=== PATIENT | female | born 1990 | race Caucasian/White ===

== ENCOUNTER 2020-09-01 22:25 | Emergency (ER) | payer OTHER ==
[2020-09-01] MEDS ORDERED: Morphine 4 MG/ML VIAL ONE (23:04)
[2020-09-01 23:28] LABS: BHCG - Serum Negative (NEGATIVE); Pregs Control Background? CLEAR/WHITE (CLR/WHITE); Pregs Control Bar Appear? YES (CONTROL BAR)
[2020-09-01 23:32] LABS: #Eosinphils 0.4 10x3/uL (0.0-0.5); #Monocytes 0.7 10x3/uL (0.0-1.1); #Neutrophils 9.1 10x3/uL (1.5-8.4); %Basophils 0.3 % (0.0-2.0); %Eosinophils 3.1 % (0.0-6.0); %Lymphocytes 20.2 % (18.0-47.0); %Monocytes 5.2 % (0.0-10.0); %Neutrophils 70.9 % (40.0-75.0); Hemoglobin 10.3 g/dL (12.0-15.5); Mean Corpuscular HGB CONC 28.9 g/dL (32.0-36.0); Mean Corpuscular Volume 69.2 fl (81.6-98.3); Mean Platelet Volume 10.9 fl (7.4-10.4); Platelet Count 340 10x3/uL (150-450); RBC Distribution Width 20.1 % (11.5-14.5); Red Blood Cell (RBC) Count 5.16 10x6/uL (3.90-5.03); White Blood Cell (WBC) Count 12.8 10x3/uL (3.5-10.5)
[2020-09-01 23:33] LABS: ALT (SGPT) 12 U/L (8-55); AST (SGOT) 17 U/L (5-34); Albumin 4.6 g/dL (3.5-5.0); Alkaline Phosphatase 96 U/L (40-110); Anion Gap 14 mmol/L (10-20); BUN (Urea Nitrogen) 8 mg/dL (7.0-18.7); Bilirubin, Total 0.2 mg/dL (0.2-1.2); Calc. Creatinine Clearance 0 mL/min (70-130); Calcium 9.1 mg/dL (7.8-10.44); Carbon Dioxide 24 mmol/L (22-29); Chloride 105 mmol/L (98-107); Globulin 3.6 g/dL (2.4-3.5); Glucose 85 mg/dL (70-105); Potassium 3.8 mmol/L (3.5-5.1); Protein, Total 8.2 g/dL (6.0-8.3); Sodium 139 mmol/L (136-145)
[2020-09-02] MEDS ORDERED: Ketorolac Tromethamine 30 MG/ML VIAL ONE (00:41)
[2020-09-02 00:42] LABS: Anisocytosis MODERATE=16-30 cells (100X) (0-5/hpf); Microcytosis MODERATE=15-30 cells (100X) (0-5/hpf)
[2020-09-02 00:43] LABS: Hypochromia SLIGHT = 6-15 cells (100X) (0-5/hpf); Large Platelets MODERATE; Ovalocytes SLIGHT = 2-5 cells (100X) (0-1/hpf); Platelet Morphology Comment Appears Adequate; Reflex for Review?? YES
[2020-09-02 00:44] LABS: Macrocytosis SLIGHT = 6-15 cells (100X) (0-5/hpf)
== END 2020-09-02 01:23 | disposition home or self-care (01) ==
LOC: CSHERS 22:25
DX: S12.600A Unspecified displaced fracture of seventh cervical vertebra, initial encounter for closed fracture (principal); V86.59XA Driver of other special all-terrain or other off-road motor vehicle injured in nontraffic accident, initial encounter
CPT/HCPCS: 70450; 70486; 71260; 72125; 74177; 80053; 84703; 85025; 85060; 93005; 96374; 96375; J1885; J2270

== ENCOUNTER 2021-06-19 22:11 | Day surgery (SDC) | payer OTHER ==
[2021-06-19 22:46] VITALS: BMI 32.1
[2021-06-20] MEDS ORDERED: hydrALAZINE 20 MG/ML VIAL SLOW IVP PRN (00:45)
== END 2021-06-20 02:47 | disposition home or self-care (01) ==
LOC: CSHLD/OP 22:11
PROVIDERS: ATTEND Obstetrics & Gynecology
DX: O99.891 Other specified diseases and conditions complicating pregnancy (principal); R03.0 Elevated blood-pressure reading, without diagnosis of hypertension; M79.89 Other specified soft tissue disorders; O24.410 Gestational diabetes mellitus in pregnancy, diet controlled; Z3A.37 37 weeks gestation of pregnancy
CPT/HCPCS: 81003; 99283

== ENCOUNTER 2021-06-22 15:12 | Inpatient (IN) | payer OTHER ==
[~2021-06-22 15:12] MED LIST: Bupivacaine 0.25% HCL 30 ML VIAL ONE
[2021-06-22 16:06] VITALS: BMI 32.1
[2021-06-22] MEDS ORDERED: Acetaminophen 325 MG TAB PO PRN (16:28)
[2021-06-22] MEDS ORDERED: Ondansetron PF 4 MG/2 ML Vial IVP PRN ×2 (16:28→16:35)
[2021-06-22] MEDS ORDERED: Naloxone HCl 0.4 mg/ml Vial IVP PRN ×2 (16:28)
[2021-06-22] MEDS ORDERED: Hydrocerin (Eucerin) Cream 120 gm Jar TOP PRN (16:28)
[2021-06-22] MEDS ORDERED: ePHEDrine Sulfate 50 MG/10 ML VIAL SLOW IVP PRN (16:28)
[2021-06-22] MEDS ORDERED: Promethazine HCl 25 MG/ML VIAL IM PRN ×2 (16:28→16:35)
[2021-06-22] MEDS ORDERED: diphenhydrAMINE 50 MG/ML VIAL IVP PRN (16:28)
[2021-06-22] MEDS ORDERED: Lactated Ringer's 500 ML IV PRN (16:28)
[2021-06-22] MEDS ORDERED: Fentanyl 2 mcg/Bupivacaine 0.1% Cassette 100 ML EPIDURAL SCH (16:30)
[2021-06-22] MEDS ORDERED: Communication Order-Pharmacy FS SCH (16:30)
[2021-06-22] MEDS ORDERED: HYDROcodone/Acetaminophen 5/325 mg Tablet PO PRN ×2 (16:35→20:22)
[2021-06-22] MEDS ORDERED: Butorphanol Tartrate 1 MG/ML VIAL SLOW IVP PRN (16:35)
[2021-06-22] MEDS ORDERED: Diphenoxylate HCl/Atropine Tablet PO PRN (16:35)
[2021-06-22] MEDS ORDERED: Misoprostol 200 MCG TAB PR PRN (16:35)
[2021-06-22] MEDS ORDERED: Lidocaine 1% (PF) 30 ML VIAL SC PRN (16:35)
[2021-06-22] MEDS ORDERED: hydrALAZINE 20 MG/ML VIAL SLOW IVP PRN (16:35)
[2021-06-22] MEDS ORDERED: Carboprost 250 MCG/ML AMP IM PRN (16:35)
[2021-06-22] MEDS ORDERED: Acetaminophen 500 MG TAB PO PRN (16:35)
[2021-06-22] MEDS ORDERED: Ibuprofen 800 MG TAB PO PRN (16:35)
[2021-06-22] MEDS ORDERED: Methylergonovine 0.2 MG/ML VIAL IM PRN (16:35)
[2021-06-22] MEDS ORDERED: NS w/ Oxytocin 30 units 500 ML IV SCH (16:45)
[2021-06-22 16:56] LABS: Hemoglobin 13.1 g/dL (12.0-15.5); Mean Corpuscular HGB CONC 31.9 g/dL (32.0-36.0); Mean Corpuscular Hemoglobin 26.2 pg (27.0-33.0); Mean Corpuscular Volume 82.2 fl (81.6-98.3); Mean Platelet Volume 10.3 fl (7.4-10.4); Platelet Count 167 10x3/uL (150-450); RBC Distribution Width 21.7 % (11.5-14.5)
[2021-06-22] MEDS ORDERED: Fentanyl 2 mcg/Bup 0.1% Cadd 100 ML ONE (17:20)
[2021-06-22 18:29] LABS: HIV (1/2) Antibody/Antigen Non-Reactive (NonReactive); HIV 1/2 INDEX 0.08 S/CO (<1.00); Hep B Surf Ag Non-Reactive S/CO (NonReactive); Syphilis Antibody Nonreactive (Nonreactive); Syphilis Antibody Index 0.04 S/CO (<1.00 Non-Reactive)
[2021-06-22 18:37] LABS: HBSAg Index 0.17 S/CO (0-0.99)
[2021-06-22 19:35] LABS: SARS-CoV-2 NAA Rapid Test Not Detected (NotDetected)
[2021-06-22] MEDS ORDERED: Preparation H Ointment 28 GM TUBE PR PRN (20:22)
[2021-06-22] MEDS ORDERED: diphenhydrAMINE 25 MG CAP PO PRN (20:22)
[2021-06-22] MEDS ORDERED: Milk Of Magnesia 30 ML UDCUP PO PRN (20:22)
[2021-06-22] MEDS ORDERED: Lanolin Ointment 7 GM TUBE TOP PRN (20:22)
[2021-06-22] MEDS ORDERED: Boostrix 0.5 ML (Tdap) VIAL IM ONE (20:22)
[2021-06-22] MEDS ORDERED: Bisacodyl 10 MG SUPP PR PRN (20:22)
[2021-06-22] MEDS ORDERED: Benzocaine-Menthol 82.5 ML CAN TOP PRN (20:22)
[2021-06-23 02:30] LABS: Amphetamine Detected (NotDetected); Barbiturates Screen Not Detected (NotDetected); Benzodiazepine Screen Not Detected (NotDetected); Cocaine Metabolite Screen Not Detected (NotDetected); Methadone Not Detected (NotDetected); Methamphetamine Detected (NotDetected); Opiate Screen Not Detected (NotDetected); Oxycodone Screen Not Detected (NotDetected); Phencyclidine (PCP) Not Detected (NotDetected); THC/Cannabinoid Screen Not Detected (NotDetected); Tricyclic Screen Not Detected (NotDetected)
[2021-06-23] MEDS: Docusate 100 MG CAP PO SCH ×3 (06:15→21:11)
[2021-06-23] MEDS: Ibuprofen 800 MG TAB PO SCH ×4 (06:15→21:11)
[2021-06-23] MEDS: Lactated Ringer's 1,000 ML IV SCH ×3 (07:16→15:32)
[2021-06-23] MEDS: Ferrous Sulfate 325 MG TAB PO SCH ×2 (07:17→15:32)
[2021-06-23] MEDS: Prenatal Vitamin 1 TAB PO SCH (08:09)
[2021-06-24] MEDS: Ibuprofen 800 MG TAB PO SCH ×2 (05:54→13:37)
[2021-06-24] MEDS: Lactated Ringer's 1,000 ML IV SCH ×3 (05:56→18:33)
[2021-06-24 07:23] VITALS: BP 129/91; TEMP 98.1
[2021-06-24] MEDS: Prenatal Vitamin 1 TAB PO SCH (08:43)
[2021-06-24] MEDS: Docusate 100 MG CAP PO SCH (08:43)
[2021-06-24] MEDS: Ferrous Sulfate 325 MG TAB PO SCH ×2 (08:46→18:33)
[2021-06-26 21:19] LABS: Chlam.trachomatis by PCR,Urine Not Detected (NotDetected)
== END 2021-06-24 18:45 | disposition home or self-care (01) | DRG 806 ==
LOC: CSHLD/OP 15:12 → CSHLD 16:22 → CSHPP 22:45
PROVIDERS: ADMIT Obstetrics & Gynecology; ATTEND Obstetrics & Gynecology
PROC: 10907ZC Drainage of Amniotic Fluid, Therapeutic from Products of Conception, Via Natural or Artificial Opening (ICD-10-PCS; principal; 2021-06-22)
PROC: 10H07YZ Insertion of Other Device into Products of Conception, Via Natural or Artificial Opening (ICD-10-PCS; 2021-06-22)
PROC: 10E0XZZ Delivery of Products of Conception, External Approach (ICD-10-PCS; 2021-06-22)
DX: O99.02 Anemia complicating childbirth (principal); O99.324 Drug use complicating childbirth; Z37.0 Single live birth; Z3A.38 38 weeks gestation of pregnancy; Z20.822 Contact with and (suspected) exposure to COVID-19; O77.0 Labor and delivery complicated by meconium in amniotic fluid; O69.81X0 Labor and delivery complicated by cord around neck, without compression, not applicable or unspecified; D64.9 Anemia, unspecified; F15.10 Other stimulant abuse, uncomplicated
CPT/HCPCS: 51702; 80306; 85027; 86762; 86780; 86850; 86900; 86901; 87340; 87389; 87491; 87591; 99285; S0020; U0002

== ENCOUNTER 2024-02-29 11:08 | Emergency (ER) | payer OTHER ==
[2024-02-29] MEDS ORDERED: methylPREDNISolone Sod Succ/PF 125 MG/2 ML VIAL ONE (12:07)
== END 2024-02-29 12:29 | disposition home or self-care (01) ==
LOC: CSHERS 11:08
DX: L25.9 Unspecified contact dermatitis, unspecified cause (principal)
CPT/HCPCS: 96372; 99282; J2919

== ENCOUNTER 2024-04-16 18:36 | Emergency (ER) | payer OTHER ==
[2024-04-16] MEDS ORDERED: Dexamethasone 10 MG/ML VIAL ONE (19:35)
== END 2024-04-16 19:41 | disposition home or self-care (01) ==
LOC: CSHERS 18:36
DX: L25.9 Unspecified contact dermatitis, unspecified cause (principal)
CPT/HCPCS: 96372; 99282; J1100